=== PATIENT | male | born 1975 | race Two or more races ===

== ENCOUNTER 2025-01-19 15:23 | Inpatient (IN) | payer MEDICAID, OTHER ==
[~2025-01-19] VITALS: Ht 162.6 cm; Wt 55.8 kg
--- NOTE | 2025-01-19 16:10 | ED.PDOC ---
SOB-HPI HPI Comments 49 y/o M, with PMHx of tuberculosis and DM presents to the ED for CC of cough with blood. Patient states, he has been having hemoptysis sudden onset, this morning (01/19/25). Patient reports, he was last diagnosed with Tuberculosis [id number] ago; endorses finishing course of antibiotics following Dx. Patient denies shortness of breath, chest pain, dizziness, body-aches, or chills. No other symptoms or modifying factors are present at this time. Chief Complaint: GI Bleed Time Seen by MD: 16:00 Reviewed notes: Nurses Notes, Medications, Allergies Information Source: Patient Mode of Arrival: Ambulatory Severity: Moderate Timing: Hours Duration: Since onset Context: At Rest PE Risk Factors: None History of: None Prehospital treatment: None Modifying Factors: Nothing Associated Signs and Symptoms: Cough Past Medical History PAST MEDICAL HISTORY: DM Past Medical History (Other): TB Surgical History: Denies all surgeries Family History Family History: Unknown Social History Smoker: Non-Smoker Alcohol: Occasionally Drugs: Denies Drug Use Lives In: Home Constitutional: denies: chills, diaphoresis, fatigue, fever, malaise, sweats, weakness, others EENTM: denies: blurred vision, double vision, ear bleeding, ear discharge, ear drainage, ear pain, ear ringing, eye pain, eye redness, hearing loss, mouth pain, mouth swelling, nasal discharge, nose bleeding, nose congestion, nose pain, photophobia, tearing, throat pain, throat swelling, voice changes, others Respiratory: reports: cough, others (HEMOPTYSIS); denies: hemoptysis, orthopnea, SOB at rest, shortness of breath, SOB with excertion, stridor, wheezing Cardiovascular: denies: chest pain, dizzy spells, diaphoresis, Dyspnea on exertion, edema, irregular heart beat, left arm pain, lightheadedness, palpitations, PND, syncope, others Gastrointestinal: denies: abdomen distended, abdominal pain, blood streaked bowels, constipated, diarrhea, dysphagia, difficulty swallowing, hematemesis, melena, nausea, poor appetite, poor fluid intake, rectal bleeding, rectal pain, vomiting, others Genitourinary: denies: burning, dysuria, flank pain, frequency, hematuria, incontinence, penile discharge, penile sore, pain, testicle pain, testicle swelling, urgency, others Neurological: denies: dizziness, fainting, headache, left sided numbness, left sided weakness, numbness, paresthesia, pre-existing deficit, right sided numbness, right sided weakness, seizure, speech problems, tingling, tremors, weakness, others Musculoskeletal: denies: back pain, gout, joint pain, joint swelling, muscle pain, muscle stiffness, neck pain, others Integumetry: denies: bruises, change in color, change in hair/nails, dryness, laceration, lesions, lumps, rash, wounds, others Allergic/Immunocompromised: denies: Difficulty Healing, Frequent Infections, Hives, Itching, others Hematologic/Lymphatic: denies: anemia, blood clots, easy bleeding, easy bruising, swollen glands, others Endocrine: denies: excessive hunger, excessive sweating, excessive thirst, excessive urination, flushing, intolerance to cold, intolerance to heat, unexplained weight gain, unexplained weight loss, others Psychiatric: denies: anxiety, bipolar disorder, depression, hopeless, panic disorder, schizophrenia, sleepless, suicidal, others All Other Systems: Reviewed and Negative Physical Exam General Appearance: No Apparent Distress HEENT: Normal ENT Inspection, Pharynx Normal, TMs Normal Neck: Full Range of Motion, Non-Tender, Normal, Normal Inspection Respiratory: Chest Non-Tender, Lungs Clear, No Accessory Muscle Use, No Respiratory Distress, Normal Breath Sounds Cardiovascular: No Edema, No JVD, No Murmur, No Gallop, Normal Peripheral Pulses, Regular Rate/Rhythm Breast Exam: Deferred Gastrointestinal: No Organomegaly, Non Tender, No Pulsatile Mass, Normal Bowel Sounds, Soft Genitalia: Deferred Pelvic: Deferred Rectal: Deferred Extremities: No calf tenderness, Normal capillary refill, Normal inspection, Normal range of motion, Non-tender, No pedal edema Musculoskeletal : Apperance: Normal Neurologic: Alert, equipment specialist II-XII nml as Tested, No Motor Deficits, Normal Affect, Normal Mood, No Sensory Deficits Cerebellar Function: Normal Reflexes: Normal Skin: Dry, Normal Color, Warm Lymphatic: No Adenopathy Was a procedure done? Was a procedure done?: No Differential Dx Differential Diagnosis: Bronchitis, Other (tuberculosis) X-Ray, Labs, Meds, VS Vital Signs Date Time Temp Pulse Resp B/P (MAP) Pulse Ox O2 Delivery O2 Flow Rate FiO2 01/19/25 15:25 97.8 94 19 133/77 97 97.8 Lab Test 01/19/25 16:13 Range/Units White Blood Count 5.4 4.4-10.8 10^3/uL Red Blood Count 4.37 L 4.5-5.90 10^6/uL Hemoglobin 13.3 L 13.5-17.5 g/dL Hematocrit 38.8 L 41.0-53.0 % Mean Corpuscular Volume 88.9 80.0-100.0 fL Mean Corpuscular Hemoglobin 30.6 28.0-32.0 pg Mean Corpuscular Hemoglobin Concent 34.4 32.0-36.0 g/dL Red Cell Distribution Width 12.6 11.8-14.3 % Platelet Count 299 140-450 10^3/uL Mean Platelet Volume 7.6 6.9-10.8 fL Neutrophils (%) (Auto) 63.5 37.0-80.0 % Lymphocytes (%) (Auto) 26.4 10.0-50.0 % Monocytes (%) (Auto) 8.8 0.0-12.0 % Eosinophils (%) (Auto) 1.2 0.0-7.0 % Basophils (%) (Auto) 0.1 0.0-2.0 % Neutrophils # (Auto) 3.4 1.6-8.6 10 ^3/uL Lymphocytes # (Auto) 1.4 0.4-5.4 10 ^3/uL Monocytes # (Auto) 0.5 0-1.3 10 ^3/uL Eosinophils # (Auto) 0.1 0-0.8 10 ^3/uL Basophils # (Auto) 0 0-0.2 10 ^3/uL Nucleated Red Blood Cells 0.1 % Sodium Level 133 L 136-145 mmol/L Potassium Level 4.2 3.5-5.1 mmol/L Chloride Level 96 L 98-107 mmol/L Carbon Dioxide Level 27 20-31 mmol/L Anion Gap 10 5-15 Blood Urea Nitrogen 12 9-23 mg/dL Creatinine 1.04 0.700-1.30 mg/dL Glomerular Filtration Rate Calc 87 >90 mL/min BUN/Creatinine Ratio 11.5 10.0-20.0 Serum Glucose 498 *H 74-106 mg/dL Calcium Level 9.6 8.7-10.4 mg/dL CXR: IMPRESSION: Mild interstitial prominence more prominent of the upper lung zones which may represent infectious/ inflammatory process with fibrosis not excluded. The patient's CBC and chemistry panel are within normal limits The patient has remained afebrile here in the emergency department At this time, the patient is being placed in isolation A CAT scan of the chest has been ordered The patient will be admitted to the hospitalist We are contacting our Infectious Disease physician The patient is being admitted. Images Reviewed?: Images reviewed and evaluated by me Time of 1ST Reevaluation: 16:30 Reevaluation 1ST: Unchanged Patient Education/Counseling: Diagnosis, Treatment, Prognosis Family Education/Counseling: No Family Present SEPSIS Sepsis Screen Date sepsis recognized/suspect: Jan 19, 2025 Time Sepsis recognized/suspect: 1524 Recent Procedure: No On Antibiotic Therapy: No Respiratory Rate >20: No Heart Rate >90: Yes Temp<36 C (96.8 F) or >38.3 C: No SBP <90 or MAP <65 mmHG: No New Acute Mental Status Change: No Is the patient on CPAP, BIPAP,: No Physician Orders Chest Two Views Routine (01/19/25 16:02) Heplock Iv (01/19/25 ) Teacher Assistant (01/19/25 ) Pulse Oxymetry (01/19/25 17:11) Blood Pressure (01/19/25 ) Chest Without Contrast (01/19/25 17:11) Vital Signs Date Time Temp Pulse Resp B/P (MAP) Pulse Ox O2 Delivery O2 Flow Rate FiO2 01/19/25 15:25 97.8 94 19 133/77 97 97.8 Laboratory Tests Test 01/19/25 16:13 White Blood Count 5.4 10^3/uL (4.4-10.8) Departure 1 Departure Time of Disposition: 17:05 Impression: Primary Impression: Hemoptysis Disposition: ADMITTED INPATIENT Admit to: Med Surg Condition: Fair Critical Care Note Critical Care Time?: No Stability Stability form required: Yes Unstable for transfer: ED Physician Assesment (Clinical assesment) Heart Score Heart Score: Heart Score Response (Comments) Value History N/A 0 EKG N/A 0 Age N/A 0 Risk Factors N/A 0 Troponin N/A 0 Total 0 I personally scribed for MARV GREY MD ([email or web address]) on 01/19/25 at 16:10. Electronically submitted by Paula Miller ([email or web address]). I personally scribed for MARV GREY MD ([email or web address]) on 01/19/25 at 16:57. Electronically submitted by Paula Miller ([email or web address]). MARV GREY MD Jan 19, 2025 16:10
[2025-01-19 16:36] LABS: Hematocrit 38.8 % (41.0-53.0); Hemoglobin 13.3 g/dL (13.5-17.5); Mean Corpuscular Hemoglobin 30.6 pg (28.0-32.0); Mean Corpuscular Volume 88.9 fL (80.0-100.0); Nucleated Red Blood Cells % 0.1 %
[2025-01-19 16:41] LABS: Calcium 9.6 mg/dL (8.7-10.4); Potassium 4.2 mmol/L (3.5-5.1)
[2025-01-19 16:42] LABS: Anion Gap 10 (5-15); Carbon Dioxide 27 mmol/L (20-31)
[2025-01-19 16:46] LABS: Chloride 96 mmol/L (98-107); Sodium 133 mmol/L (136-145)
[2025-01-19 16:47] LABS: BUN/Creatinine Ratio 11.5 (10.0-20.0); Blood Urea Nitrogen 12 mg/dL (9-23)
--- NOTE | 2025-01-19 16:50 | DVH ---
XY CHEST TWO VIEWS ROUTINE CLINICAL HISTORY: cough COMPARISON: None TECHNIQUE: Frontal and lateral view of the chest was obtained FINDINGS: Lines and Tubes: None Lungs: Mild interstitial prominence most prominent of the upper lung zones. Pleura: No effusion. No pneumothorax. Cardiomediastinal contours: Unremarkable Bones: No acute osseous abnormality. IMPRESSION: Mild interstitial prominence more prominent of the upper lung zones which may represent infectious/ i nflammatory process with fibrosis not excluded.
[2025-01-19 17:08] LABS: Glucose 498 mg/dL (74-106)
--- NOTE | 2025-01-19 18:40 | DVH ---
Procedure: CT CHEST WITHOUT CONTRAST Reason for study/Clinical History: Cough with hemoptysis and possible TB Comparison Study: XY CHEST TWO VIEWS ROUTINE on DOS: 01/19/25 Exam Date: 01/19/2025 05:44 PM TECHNIQUE: Multidetector CT of the chest was performed from the lung apices to the upper abdomen with out the use of intravenous contract. Axial, coronal and sagittal multiplanar reformats were performed . Radiation Dose Information: CT Dose: CTDI volume is 9.6 mGy. Dose-length product is 335.77 mGy*cm The dose indicators for CT are the volume Computed Tomography (CT) Dose Index (CTDIvol) and the Dose Length Product (DLP), and are measured in units of mGy and mGy-cm, respectively. These indicators are not patient dose, but values generated from the CT scanner acquisition factors. The report includes radiation exposure data for exposures received during this examination. FINDINGS: Lower neck: Normal thyroid. Lungs: Bilateral apical pleural disease with a stellate consolidation left apex. This may represent scarring or neoplasm. It measures 2.3 x 2.6 cm. Biapical bullous disease is noted. Heart/Vascular Structures: Normal heart size. No pericardial effusion. Lymph Nodes: No adenopathy Pleura: No pleural effusion or significant pneumothorax. Musculoskeletal: No acute osseous abnormality. Soft tissues: Normal. Upper abdomen: Limited portions of the upper abdomen are unremarkable. IMPRESSION: 1. Biapical pleural scarring bullous disease. 2. In the left apex is a 2.6 x 2.3 cm spiculated parenchymal consolidation with parenchymal stranding to the pleural surfaces. Pulmonary scarring vs neoplasm vs infection are all in the differential. T here are no prior studies for comparison. Consider PET scan for further differentiation. Not sure PET is indicated case. Radiation optimization: All CT scans at this facility use at least one of these dose optimization maribel hniques: automated exposure control mA and/or kV adjustment per patient size (includes targeted exam s where dose is matched to clinical indication) or iterative reconstruction.
[2025-01-19] MEDS ORDERED: MORPHINE SULFATE INJ 2 MG/ml SYRG IV PRN (20:00)
[2025-01-19] MEDS ORDERED: NITROGLYCERIN 0.4 MG SL TAB SL PRN (20:00)
[2025-01-19 20:10] VITALS: PULSE 88; RESP 24; O2SAT 98
[2025-01-19] MEDS ORDERED: DEXTROSE (50%) 50ML SYRG IV PRN (20:30)
[2025-01-19] MEDS ORDERED: ONDANSETRON HCL 4 MG/2 ML VIAL IV PRN (20:30)
[2025-01-19 20:58] LABS: Hematocrit 40.6 % (41.0-53.0); Hemoglobin 14.1 g/dL (13.5-17.5)
[2025-01-19 21:02] LABS: Urine Protein, UAD Negative (Negative)
--- NOTE | 2025-01-19 22:50 | DVHHP2 ---
History of Present Illness Reason for Visit: Hemoptysis History of Present Illness 49-year-old male presents for evaluation of bloody cough. Patient reports a one day history of having a cough with bloody sputum. Denies fever or chills. No night sweats. Patient does report being treated for tuberculosis nine years ago for which he completed six months of treatment. Past Medical History Diabetes mellitus, tuberculosis Past Surgical History Denies Family History Noncontributory Smoke: No ALCOHOL: occassional Drugs: None Lives: with Family Review of Systems Review of Systems Review of systems are currently negative otherwise addressed in HPI. Allergies: Coded Allergies: NO KNOWN ALLERGIES (Unverified , 01/19/25) Medications Current Medications Medications Dose Ordered Sig/Jackelin Route Start Time Stop Time Status Last Admin Dose Admin Nitroglycerin 0.4 mg Q5MINP PRN SL 01/19/25 20:00 Morphine Sulfate 2 mg Q30M PRN IV 01/19/25 20:00 Diagnostic Test (Pha) 1 strip Q6HR 01/20/25 00:00 Insulin Human Regular Q6HR SC 01/20/25 00:00 Dextrose 50 ml UD PRN IV 01/19/25 20:30 Ondansetron HCl 4 mg Q4HP PRN IV 01/19/25 20:30 Exam Vital Signs Vital Signs Date Time Temp Pulse Resp B/P (MAP) Pulse Ox O2 Delivery O2 Flow Rate FiO2 01/19/25 22:00 95 22 134/84 (101) 96 01/19/25 20:10 98.4 98.4 01/19/25 20:10 Nasal Cannula* 2 28 Exam Gen: 49-year-old male in no apparent distress Skin: Warm, dry, normal color and texture, no rash. HEENT: Normocephalic atraumatic, mucous membranes moist and pink. Neck: Cervical and supraclavicular nodes normal without enlargement, trachea is midline, thyroid gland is normal without masses. Pulmonary: Clear to auscultation and percussion bilaterally. Cardiac: Regular rate and rhythm. No murmur Abdomen: Soft, nontender, nondistended, bowel sounds present all 4 quadrants, no guarding, no rigidity, no organomegaly. Extremities: No cyanosis, clubbing, no edema Neuro: Cranial nerves II through XII grossly intact, normal affect and speech, no focal motor deficits. Labs/Xrays ORDERING PHYSICIAN: MARV GREY MD PROCEDURE(s): CX2CT - CHEST WITHOUT CONTRAST REASON: Cough with hemoptysis and possible TB ORDER NUMBER(s): [id number], ACCESSION NUMBER(s): [id number] Procedure: CT CHEST WITHOUT CONTRAST Reason for study/Clinical History: Cough with hemoptysis and possible TB Comparison Study: XY CHEST TWO VIEWS ROUTINE on DOS: 01/19/25 Exam Date: 01/19/2025 05:44 PM TECHNIQUE: Multidetector CT of the chest was performed from the lung apices to the upper abdomen without the use of intravenous contract. Axial, coronal and sagittal multiplanar reformats were performed. Radiation Dose Information: CT Dose: CTDI volume is 9.6 mGy. Dose-length product is 335.77 mGy*cm The dose indicators for CT are the volume Computed Tomography (CT) Dose Index (CTDIvol) and the Dose Length Product (DLP), and are measured in units of mGy and mGy-cm, respectively. These indicators are not patient dose, but values generated from the CT scanner acquisition factors. The report includes radiation exposure data for exposures received during this examination. FINDINGS: Lower neck: Normal thyroid. Lungs: Bilateral apical pleural disease with a stellate consolidation left apex. This may represent scarring or neoplasm. It measures 2.3 x 2.6 cm. Biapical bullous disease is noted. Heart/Vascular Structures: Normal heart size. No pericardial effusion. Lymph Nodes: No adenopathy Pleura: No pleural effusion or significant pneumothorax. Musculoskeletal: No acute osseous abnormality. Soft tissues: Normal. Upper abdomen: Limited portions of the upper abdomen are unremarkable. IMPRESSION: 1. Biapical pleural scarring bullous disease. 2. In the left apex is a 2.6 x 2.3 cm spiculated parenchymal consolidation with parenchymal stranding to the pleural surfaces. Pulmonary scarring vs neoplasm vs infection are all in the differential. There are no prior studies for comparison. Consider PET scan for further differentiation. Not sure PET is indicated case. Radiation optimization: All CT scans at this facility use at least one of these dose optimization techniques: automated exposure control mA and/or kV adjustment per patient size (includes targeted exams where dose is matched to clinical indication) or iterative reconstruction. Labs Test 01/19/25 20:54 01/19/25 20:40 01/19/25 16:13 Range/Units Urine Color Light-yellow Yellow Urine Clarity Clear Clear Urine pH 5.0 5.0-9.0 Urine Specific [place] 1.041 H 1.001-1.035 Urine Protein Negative Negative Urine Ketones 1+ H Negative Urine Blood Negative Negative /uL Urine Nitrite Negative Negative Urine Bilirubin Negative Negative Urine Urobilinogen Normal Negative mg/dL Urine Leukocyte Esterase Negative Negative /uL Urine RBC <1 0 - 3 /hpf Urine Microscopic WBC < 1 0-3 /HPF Urine Squamous Epithelial Cells None seen <5 /hpf Urine Bacteria None seen None Seen /hpf Urine Glucose 4+ H Normal mg/dL Hemoglobin 14.1 13.5-17.5 g/dL Hematocrit 40.6 L 41.0-53.0 % White Blood Count 5.4 4.4-10.8 10^3/uL Red Blood Count 4.37 L 4.5-5.90 10^6/uL Mean Corpuscular Volume 88.9 80.0-100.0 fL Mean Corpuscular Hemoglobin 30.6 28.0-32.0 pg Mean Corpuscular Hemoglobin Concent 34.4 32.0-36.0 g/dL Red Cell Distribution Width 12.6 11.8-14.3 % Platelet Count 299 140-450 10^3/uL Mean Platelet Volume 7.6 6.9-10.8 fL Neutrophils (%) (Auto) 63.5 37.0-80.0 % Lymphocytes (%) (Auto) 26.4 10.0-50.0 % Monocytes (%) (Auto) 8.8 0.0-12.0 % Eosinophils (%) (Auto) 1.2 0.0-7.0 % Basophils (%) (Auto) 0.1 0.0-2.0 % Neutrophils # (Auto) 3.4 1.6-8.6 10 ^3/uL Lymphocytes # (Auto) 1.4 0.4-5.4 10 ^3/uL Monocytes # (Auto) 0.5 0-1.3 10 ^3/uL Eosinophils # (Auto) 0.1 0-0.8 10 ^3/uL Basophils # (Auto) 0 0-0.2 10 ^3/uL Nucleated Red Blood Cells 0.1 % Sodium Level 133 L 136-145 mmol/L Potassium Level 4.2 3.5-5.1 mmol/L Chloride Level 96 L 98-107 mmol/L Carbon Dioxide Level 27 20-31 mmol/L Anion Gap 10 5-15 Blood Urea Nitrogen 12 9-23 mg/dL Creatinine 1.04 0.700-1.30 mg/dL Glomerular Filtration Rate Calc 87 >90 mL/min BUN/Creatinine Ratio 11.5 10.0-20.0 Serum Glucose 498 *H 74-106 mg/dL Calcium Level 9.6 8.7-10.4 mg/dL SEPSIS Sepsis Screen Date sepsis recognized/suspect: Jan 19, 2025 Time Sepsis recognized/suspect: 2012 Recent Procedure: No On Antibiotic Therapy: No Respiratory Rate >20: Yes Heart Rate >90: No Temp<36 C (96.8 F) or >38.3 C: No SBP <90 or MAP <65 mmHG: No New Acute Mental Status Change: No Is the patient on CPAP, BIPAP,: No Physician Orders Chest Two Views Routine (01/19/25 16:02) Heplock Iv (01/19/25 ) Double End Sewer (01/19/25 ) Pulse Oxymetry (01/19/25 17:11) Blood Pressure (01/19/25 ) Chest Without Contrast (01/19/25 17:11) Nitroglycerin Sublingual (Ntrostat Subli (01/19/25 20:00) Stat Ekg For Chest Pain (01/19/25 19:55) Notify Md Of Changes From Base (01/19/25 19:55) Supervisor [employer] For 24 Hours (01/19/25 19:55) Emergency Dysrhythmia Protocol (01/19/25 19:55) Rhythm Strips Once Every Shift (01/19/25 19:55) Oxygen By Nasal Cannula (01/19/25 19:55) Morphine Sulfate Injection (01/19/25 20:00) Admit (01/19/25 20:22) *Consult / (01/19/25 20:22) Basic Metabolic Panel (01/20/25 04:00) Glucose Blood (Accu-Chek Comfort Curve T (01/20/25 00:00) Insulin R (Human) (Insulin R) (01/20/25 00:00) Dextrose 50% Syringe (01/19/25 20:30) Ondansetron Hcl (Zofran) (01/19/25 20:30) Complete Blood Count (01/20/25 04:00) Cardiac Diet-2gna,Lofat,Lochol (01/20/25 Breakfast) Condition: Stable (01/19/25 20:22) Bedrest With Bathroom Privileg (01/19/25 20:22) Vital Signs Date Time Temp Pulse Resp B/P (MAP) Pulse Ox O2 Delivery O2 Flow Rate FiO2 01/19/25 22:00 95 22 134/84 (101) 96 01/19/25 20:10 98.4 88 24 142/91 (108) 98 98.4 01/19/25 20:10 88 24 98 Nasal Cannula* 2 28 01/19/25 20:00 79 01/19/25 18:14 Room Air* 0 21 01/19/25 15:25 97.8 94 19 133/77 97 97.8 Laboratory Tests Test 01/19/25 16:13 White Blood Count 5.4 10^3/uL (4.4-10.8) Assessment/Plan Assessment/Plan Assessment Blood hemoptysis Diabetes mellitus History of TB Plan Admit the patient to [facility] to the hospitalist Pulmonary consultation Continue treatment per orders. Plan discussed with: Patient My Orders Orders - KATHERINE CATES Procedure Category Date Status Time Nitroglycerin PHA 01/19/25 In Process Sublingual (Ntrostat 20:00 Stat Ekg For Chest [facility] 01/19/25 In Process Pain 19:55 Notify Of Changes [facility] 01/19/25 In Process From Base 19:55 Supervisor [employer] For [facility] 01/19/25 In Process 24 Hours 19:55 Emergency Dysrhythmia GAYATHRI 01/19/25 In Process Protocol 19:55 Rhythm Strips Once [facility] 01/19/25 In Process Every Shift 19:55 Oxygen By Nasal RT 01/19/25 Transmitted Cannula 19:55 Morphine Sulfate PHA 01/19/25 In Process Injection 20:00 Admit ADMIT 01/19/25 Transmitted 20:22 *Consult CONS 01/19/25 Transmitted / 20:22 Basic Metabolic Panel LAB 01/20/25 Verified 04:00 Glucose Blood PHA 01/20/25 In Process (Accu-Chek Comfort 00:00 Insulin R (Human) PHA 01/20/25 In Process (Insulin R) 00:00 Dextrose 50% Syringe PHA 01/19/25 In Process 20:30 Ondansetron Hcl PHA 01/19/25 In Process (Zofran) 20:30 Complete Blood Count LAB 01/20/25 Verified 04:00 Cardiac DIET 01/20/25 Transmitted Diet-2gna,Lofat,Lochol Breakfast Condition: Stable GAYATHRI 01/19/25 In Process 20:22 Bedrest With Bathroom GAYATHRI 01/19/25 In Process Privileg 20:22 Date of Service: Jan 19, 2025 Billing Provider: KATHERINE CATES Common Visit Codes: [id number] INP/OBS CARE (MOD) KATHERINE CATES Jan 19, 2025 22:50
[2025-01-19] MEDS: InsuLIN REG 1unit/0.01ml Soln (100units/ml) SC SCH (23:34)
[2025-01-19] MEDS: ACCU-CHEK COMFORT CURVE STRIP VI SCH (23:34)
[2025-01-20 06:35] LABS: Hematocrit 38.6 % (41.0-53.0); Hemoglobin 13.6 g/dL (13.5-17.5); Mean Corpuscular Hemoglobin 31.0 pg (28.0-32.0); Mean Corpuscular Volume 88.0 fL (80.0-100.0); Nucleated Red Blood Cells % 0.0 %
[2025-01-20 06:59] LABS: Chloride 104 mmol/L (98-107); Potassium 3.7 mmol/L (3.5-5.1); Sodium 141 mmol/L (136-145)
[2025-01-20 07:00] LABS: Anion Gap 9 (5-15); Calcium 9.4 mg/dL (8.7-10.4); Carbon Dioxide 28 mmol/L (20-31)
[2025-01-20 07:05] LABS: BUN/Creatinine Ratio 22.0 (10.0-20.0); Blood Urea Nitrogen 13 mg/dL (9-23)
[2025-01-20 07:06] LABS: Glucose 123 mg/dL (74-106)
[2025-01-20 07:20] VITALS: PULSE 76; RESP 18; O2SAT 99
--- NOTE | 2025-01-20 14:13 | DVHPN2 ---
Subjective Patient continues to report having shortness of breath. Reviewed: Care Plan, H&P, Labs, Medications Changes from previous H/P or p: No Changes General: Per HPI Objective Vitals Vital Signs Date Time Temp Pulse Resp B/P (MAP) Pulse Ox O2 Delivery O2 Flow Rate FiO2 01/20/25 12:00 89 01/20/25 12:00 17 113/77 (89) 96 01/20/25 07:20 Room Air* 0 21 01/20/25 07:20 98.0 98.0 Intake/Output Intake and Output 01/20/25 07:00 Output Total 900 ml Balance -900 ml Output Urine Total 900 ml General Appearance: Alert, Oriented X3, Cooperative, No acute distress HEENT: Atraumatic, PERRLA Lungs: Clear to auscultation, Normal air movement Cardiovascular: Normal S1, Normal S2 Abdomen: Normal bowel sounds, Soft, No hepatospenomegaly Skin: Dry, Intact Psych/Mental Status: Mental status NL, Mood NL Medications Current Medications Medications Dose Ordered Sig/Jackelin Route Start Time Stop Time Status Last Admin Dose Admin Nitroglycerin 0.4 mg Q5MINP PRN SL 01/19/25 20:00 Morphine Sulfate 2 mg Q30M PRN IV 01/19/25 20:00 Diagnostic Test (Pha) 1 strip Q6HR 01/20/25 00:00 01/20/25 12:00 1 STRIP Insulin Human Regular Q6HR SC 01/20/25 00:00 01/20/25 12:34 10 UNITS Dextrose 50 ml UD PRN IV 01/19/25 20:30 Ondansetron HCl 4 mg Q4HP PRN IV 01/19/25 20:30 Laboratory Results Laboratory Tests 01/20/25 06:05 Chemistry Test 01/19/25 16:13 01/20/25 06:05 Calcium Level 9.6 mg/dL (8.7-10.4) 9.4 mg/dL (8.7-10.4) Urinalysis Test 01/19/25 20:54 Urine Color Light-yellow (Yellow) Urine Clarity Clear (Clear) Urine pH 5.0 (5.0-9.0) Urine Specific [place] 1.041 (1.001-1.035) Urine Protein Negative (Negative) Urine Ketones 1+ (Negative) H Urine Blood Negative /uL (Negative) Urine Nitrite Negative (Negative) Urine Bilirubin Negative (Negative) Urine Urobilinogen Normal mg/dL (Negative) Urine Leukocyte Esterase Negative /uL (Negative) Urine RBC <1 /hpf (0 - 3) Urine Microscopic WBC < 1 /HPF (0-3) Urine Squamous Epithelial Cells None seen /hpf (<5) Urine Bacteria None seen /hpf (None Seen) Urine Glucose 4+ mg/dL (Normal) H Labs and/or images reviewed: Labs reviewed by me, Image(s) reviewed by me Assessment/Plan Assessment/Plan Impression: -hemoptysis, rule out tuberculosis -diabetes mellitus, uncontrolled -medication noncompliance Plan: -QuantiFERON gold, AFB smears -pulmonology consultation -infectious disease consultation -regular insulin sliding scale -check hemoglobin A1c -further course of care per pulmonology consultation -continue current antibiotic therapy for atypical pneumonia Total time spent with patient discussing and formulating plan of care: 35 minutes. This medical document was created using an electronic medical record system with [employer] dictation system. Although this document has been carefully reviewed, there may still be some phonetic and typographical errors. These areas are purely typographical due to imperfections of the software programs, and do not reflect any compromise in the patient's medical care. Plan discussed with: Patient, Other (RN) My Orders Orders - DENICE TOVAR NP Procedure Category Date Status Time Hemoglobin A1c LAB 01/20/25 Logged 13:26 Erythrocyte LAB 01/20/25 In Process Sedimentation Rate 13:26 C-Reactive Protein LAB 01/20/25 Logged 13:26 * Infectious Oral- Dr. WICK 01/20/25 Transmitted Ishmael Medrano 13:26 Date of Service: Jan 20, 2025 Billing Provider: DENICE TOVAR NP Common Visit Codes: [id number] INP/OBS CARE(HIGH) DENICE TOVAR NP Jan 20, 2025 14:13
[2025-01-20] MEDS: PIPERACILLIN-TAZOB 3.375GM 100 ML IV ONE (14:58)
[2025-01-20 16:03] VITALS: BP 133/78; PULSE 77; RESP 15; TEMP 97.2; O2SAT 100
[2025-01-20 16:08] VITALS: PULSE 77; RESP 17; O2SAT 100
[2025-01-20] MEDS: AZITHROMYCIN 500MG/ 250ML 250 ML IV SCH (16:38)
[2025-01-20 16:52] VITALS: BP 131/85; PULSE 91; RESP 18; TEMP 98.2; O2SAT 97
[2025-01-20 21:00] VITALS: BP 115/74; PULSE 91; RESP 18; TEMP 98.4; O2SAT 96
[2025-01-20] MEDS: PIPERACILLIN-TAZOB 3.375GM 100 ML IV SCH (21:41)
--- NOTE | 2025-01-20 23:32 | DVHINCON2 ---
Date of service: Jan 20, 2025 Referring Physician MILY Tovar Reason for Consultation Hemoptysis, pulmonary nodule, biapical bullae. History of Present Illness A 49-year-old man with past medical history of tuberculosis and diabetes mellitus, who presented to ED on 01/19/25 for evaluation of bloody cough. Patient reports a one day history of having a cough with bloody sputum. Denies fever or chills. No night sweats. Patient does report being treated for tuberculosis 9 years ago, for which he completed 6 months of treatment. Patient was admitted for further care. Pulmonary consultation is requested for evaluation and management due to hemoptysis and pulmonary nodule and biapical bullae noted on imaging. Review of Systems: 14-point review of systems negative unless otherwise noted above. Past Medical History Diabetes mellitus, tuberculosis Past Surgical History Denies Medications: Reviewed. Allergies: No known drug allergies. Family History No family history of premature CAD. No family history of lung disorders. Social History: Nonsmoker. Occasional alcohol use. No illicit drug use. Allergies: Coded Allergies: NO KNOWN ALLERGIES (Unverified , 01/19/25) Home Meds Active Scripts Insulin Aspart (Insulin Aspart Flexpen) 100 Unit/Ml Inj, 6 UNIT SC ACHS for 30 Days, #6 INJ Prov:DENICE TOVAR NP 01/26/25 Insulin Glargine (Lantus) 100 Unit/Ml Inj, 25 UNIT SC DAILY for 30 Days, #60 INJ Prov:DENICE TOVAR NP 01/26/25 Levofloxacin Hemihydrate (LEVAQUIN 500 MG) 500 Mg Tab, 1 TAB PO DAILY, #7 TAB Prov:DENICE TOVAR NP 01/26/25 Lancets (Freestyle Lancets) Lancets Mis, UNIT XX AC, #100 Prov:DENICE TOVAR NP 01/26/25 Blood Glucose Monitoring Suppl (D-Care Glucometer Kit/Glu W/Device) 1 Kit Kit, KIT XX ACHS, #1 Prov:DENICE TOVAR NP 01/26/25 Current Medications Current Medications Medications (Trade) Dose Ordered Sig/Jackelin Route PRN Reason Start Time Stop Time Status Last Admin Diagnostic Test (Pha) (Accu-Chek Comfort Curve T) 1 strip Q6HR 01/20/25 00:00 01/20/25 17:43 Insulin Human Regular (InsuLIN R) Q6HR SC 01/20/25 00:00 01/20/25 17:43 Azithromycin 250 ml @ 125 mls/hr DAILY IV 01/20/25 16:00 01/20/25 16:38 Piperacillin Sod/ Tazobactam Sod 100 ml @ 25 mls/hr Q8HR IV 01/20/25 22:00 01/20/25 21:41 Vital Signs Vital Signs Date Time Temp Pulse Resp B/P (MAP) Pulse Ox O2 Delivery O2 Flow Rate FiO2 01/20/25 21:00 98.4 91 18 115/74 (88) 96 98.4 01/20/25 16:08 Room Air* 0 21 Physical Exam Gen.: Patient lying in bed in no apparent distress. Breathing on room air. Head: Normocephalic, atraumatic. Eyes: EOMI/PERRLA. Ears: Normal hearing. Normal anatomy. Neck/trachea: Trachea midline, supple. Nose: Normal external anatomy. Mouth: Moist mucous membranes. Chest: Decreased air entry bilaterally. No wheezing or rhonchi. Cardiovascular: Positive S1, positive S2. Regular rate and rhythm. Abdomen: Positive bowel sounds in all 4 quadrants. Soft, non-tender, non- distended. : Deferred. Rectal: Deferred. Skin: Warm, dry. Intact. Extremities: 2+ radial pulses bilaterally. No lower extremity edema. Neuro: Awake, alert, oriented x3. No gross motor or sensory deficits. Cranial nerves II through XII intact. Gait not assessed. Labs/Diagnostic Data Labs Test 01/20/25 16:43 01/20/25 06:05 01/19/25 23:02 01/19/25 20:54 Range/Units POC Glucose 364 H 70-106 mg/dl White Blood Count 5.2 4.4-10.8 10^3/uL Red Blood Count 4.38 L 4.5-5.90 10^6/uL Hemoglobin 13.6 13.5-17.5 g/dL Hematocrit 38.6 L 41.0-53.0 % Mean Corpuscular Volume 88.0 80.0-100.0 fL Mean Corpuscular Hemoglobin 31.0 28.0-32.0 pg Mean Corpuscular Hemoglobin Concent 35.2 32.0-36.0 g/dL Red Cell Distribution Width 12.3 11.8-14.3 % Platelet Count 288 140-450 10^3/uL Mean Platelet Volume 7.1 6.9-10.8 fL Neutrophils (%) (Auto) 53.6 37.0-80.0 % Lymphocytes (%) (Auto) 34.3 10.0-50.0 % Monocytes (%) (Auto) 10.2 0.0-12.0 % Eosinophils (%) (Auto) 1.7 0.0-7.0 % Basophils (%) (Auto) 0.2 0.0-2.0 % Neutrophils # (Auto) 2.8 1.6-8.6 10 ^3/uL Lymphocytes # (Auto) 1.8 0.4-5.4 10 ^3/uL Monocytes # (Auto) 0.5 0-1.3 10 ^3/uL Eosinophils # (Auto) 0.1 0-0.8 10 ^3/uL Basophils # (Auto) 0 0-0.2 10 ^3/uL Nucleated Red Blood Cells 0.0 % Erythrocyte Sedimentation Rate 28 H 0-20 mm/hr Sodium Level 141 # 136-145 mmol/L Potassium Level 3.7 3.5-5.1 mmol/L Chloride Level 104 98-107 mmol/L Carbon Dioxide Level 28 20-31 mmol/L Anion Gap 9 5-15 Blood Urea Nitrogen 13 9-23 mg/dL Creatinine 0.59 L 0.700-1.30 mg/dL Glomerular Filtration Rate Calc 117 >90 mL/min BUN/Creatinine Ratio 22.0 H 10.0-20.0 Serum Glucose 123 #H 74-106 mg/dL Hemoglobin A1c > 14.0 H <5.7 % A1C Calcium Level 9.4 8.7-10.4 mg/dL C-Reactive Protein High Sensitivity 0.17 <1.0 mg/dL HIV (1&2) Antibody Negative Negative Urine Color Light-yellow Yellow Urine Clarity Clear Clear Urine pH 5.0 5.0-9.0 Urine Specific [place] 1.041 H 1.001-1.035 Urine Protein Negative Negative Urine Ketones 1+ H Negative Urine Blood Negative Negative /uL Urine Nitrite Negative Negative Urine Bilirubin Negative Negative Urine Urobilinogen Normal Negative mg/dL Urine Leukocyte Esterase Negative Negative /uL Urine RBC <1 0 - 3 /hpf Urine Microscopic WBC < 1 0-3 /HPF Urine Squamous Epithelial Cells None seen <5 /hpf Urine Bacteria None seen None Seen /hpf Urine Glucose 4+ H Normal mg/dL Assessment Impression: Hemoptysis Pulmonary nodule, 2.3 x 2.6 cm Biapical bullae History of TB. Plan: Supplemental oxygen PRN Titrate to keep O2 sats above 92%. CT reviewed, demonstrates Biapical pleural scarring bullous disease. In the left apex is a 2.6 x 2.3 cm spiculated parenchymal consolidation with parenchymal stranding to the pleural surfaces. Pulmonary scarring vs neoplasm vs infection are all in the differential. Recommend antibiotics Rule out TB Follow up AFB smears Follow up QuantiFERON test Quantify hemoptysis Monitor renal function. Monitor electrolytes. Supplement as necessary. DVT prophylaxis. Prognosis: Poor given patient's multiple co-morbidities. Rest of plan per hospitalist and other consultants. Thank you, MILY Tovar, for allowing me to participate in this patient's care. Further recommendations will depend on the patient's clinical course. Please do not hesitate to contact me if you have any questions or concerns. This medical document was created using an electronic medical record system with [employer] dictation system. Although these documentations are being carefully reviewed, there may still be some phonetic and typographical changes. The errors are purely typographical, due to imperfection on the software program, and do not reflect any compromise in the patient's medical care. Plan discussed with: Patient, Other (RN/MILY Tovar/) TAE SABILLON MD Jan 20, 2025 23:32
[2025-01-21] VITALS (9 sets, daily range): BP systolic 104–149; BP diastolic 70–98; PULSE 84–88; RESP 16–18; TEMP 97.9–98.5; O2SAT 95–97
[2025-01-21] MEDS ORDERED: DEXTROSE (50%) 50ML SYRG IV PRN (11:30)
[2025-01-21] MEDS: InsuLIN REG 1unit/0.01ml Soln (100units/ml) SC SCH ×2 (12:11→22:04)
[2025-01-21] MEDS: ACCU-CHEK COMFORT CURVE STRIP VI SCH (12:12)
--- NOTE | 2025-01-21 13:44 | DVHPN2 ---
Subjective Patient continues to report having shortness of breath. Reviewed: Care Plan, H&P, Labs, Medications Changes from previous H/P or p: No Changes General: Per HPI Objective Vitals Vital Signs Date Time Temp Pulse Resp B/P (MAP) Pulse Ox O2 Delivery O2 Flow Rate FiO2 01/21/25 08:47 98.0 87 16 149/98 (115) 96 98.0 01/21/25 07:30 Room Air* 0 21 Intake/Output Intake and Output 01/21/25 07:00 Intake Total 500 ml Balance 500 ml Intake Oral 250 ml IV Total 250 ml # Voids 2 # Bowel Movements 1 General Appearance: Alert, Oriented X3, Cooperative, No acute distress HEENT: Atraumatic, PERRLA Lungs: Clear to auscultation, Normal air movement Cardiovascular: Normal S1, Normal S2 Abdomen: Normal bowel sounds, Soft, No hepatospenomegaly Skin: Dry, Intact Psych/Mental Status: Mental status NL, Mood NL Medications Current Medications Medications Dose Ordered Sig/Jackelin Route Start Time Stop Time Status Last Admin Dose Admin Nitroglycerin 0.4 mg Q5MINP PRN SL 01/19/25 20:00 Morphine Sulfate 2 mg Q30M PRN IV 01/19/25 20:00 Ondansetron HCl 4 mg Q4HP PRN IV 01/19/25 20:30 Azithromycin 250 ml @ 125 mls/hr DAILY IV 01/20/25 16:00 01/21/25 10:09 125 MLS/HR Piperacillin Sod/ Tazobactam Sod 100 ml @ 25 mls/hr Q8HR IV 01/20/25 22:00 01/21/25 05:12 25 MLS/HR Diagnostic Test (Pha) 1 strip ACHS 01/21/25 11:30 01/21/25 12:12 1 STRIP Insulin Human Regular HS SC 01/21/25 22:00 Insulin Human Regular AC SC 01/21/25 11:30 01/21/25 12:11 15 UNITS Dextrose 50 ml UD PRN IV 01/21/25 11:30 Laboratory Results Laboratory Tests 01/20/25 06:05 Urinalysis Test 01/19/25 20:54 Urine Color Light-yellow (Yellow) Urine Clarity Clear (Clear) Urine pH 5.0 (5.0-9.0) Urine Specific [place] 1.041 (1.001-1.035) Urine Protein Negative (Negative) Urine Ketones 1+ (Negative) H Urine Blood Negative /uL (Negative) Urine Nitrite Negative (Negative) Urine Bilirubin Negative (Negative) Urine Urobilinogen Normal mg/dL (Negative) Urine Leukocyte Esterase Negative /uL (Negative) Urine RBC <1 /hpf (0 - 3) Urine Microscopic WBC < 1 /HPF (0-3) Urine Squamous Epithelial Cells None seen /hpf (<5) Urine Bacteria None seen /hpf (None Seen) Urine Glucose 4+ mg/dL (Normal) H Labs and/or images reviewed: Labs reviewed by me, Image(s) reviewed by me Assessment/Plan Assessment/Plan Impression: -hemoptysis, rule out tuberculosis -diabetes mellitus, uncontrolled -medication noncompliance Plan: Events: Continues to have hemoptysis -QuantiFERON gold, AFB smears : Pending -pulmonology consultation : Recommendations reviewed -infectious disease consultation : Recommendations appreciated -increase sliding scale to moderate coverage -p.r.n. bronchodilators -continue current antibiotic therapy for atypical pneumonia Total time spent with patient discussing and formulating plan of care: 35 minutes. This medical document was created using an electronic medical record system with [employer] dictation system. Although this document has been carefully reviewed, there may still be some phonetic and typographical errors. These areas are purely typographical due to imperfections of the software programs, and do not reflect any compromise in the patient's medical care. Plan discussed with: Patient, Other (RN) My Orders Orders - DENICE TOVAR NP Procedure Category Date Status Time Cardiac DIET 01/20/25 Transmitted Diet-2gna,Lofat,Lochol Dinner Piperacillin-Tazob PHA 01/20/25 In Process 3.375gm (Zosyn 3.375g 22:00 Azithromycin 500mg/ PHA 01/20/25 In Process 250ml (Zithromax 50 16:00 Glucose Blood PHA 01/21/25 In Process (Accu-Chek Comfort 11:30 Insulin R (Human) PHA 01/21/25 In Process (Insulin R) 22:00 Insulin R (Human) PHA 01/21/25 In Process (Insulin R) 11:30 Dextrose 50% Syringe PHA 01/21/25 In Process 11:30 Date of Service: Jan 21, 2025 Billing Provider: DENICE TOVAR NP Common Visit Codes: [id number] INP/OBS CARE(HIGH) DENICE TOVAR NP Jan 21, 2025 13:44
[2025-01-21] MEDS ORDERED: ALBUTEROL SULF 2.5 MG/0.5ML(0.5%) NEB SOLN NEB PRN (13:45)
--- NOTE | 2025-01-21 20:38 | DVHPN2 ---
Progress Note - Dictate Date Seen: Jan 21, 2025 Medical Necessity Reason Pt with a Central, PICC or Fol: No Subjective Patient seen and examined at bedside. Breathing comfortably on room air. Overnight events reviewed. vital signs Vital Sign Date Time Temp Pulse Resp B/P (MAP) Pulse Ox O2 Delivery O2 Flow Rate FiO2 01/21/25 20:20 97 Room Air* 0 21 01/21/25 16:53 98.0 88 16 117/73 (88) 98.0 Total Intake and Output 01/20/25 01/20/25 01/21/25 15:00 23:00 07:00 Intake Total 250 ml 250 ml Balance 250 ml 250 ml medications Current Medications Medications Dose Ordered Sig/Jackelin Route Start Time Stop Time Status Last Admin Dose Admin Nitroglycerin 0.4 mg Q5MINP PRN SL 01/19/25 20:00 Morphine Sulfate 2 mg Q30M PRN IV 01/19/25 20:00 Ondansetron HCl 4 mg Q4HP PRN IV 01/19/25 20:30 Azithromycin 250 ml @ 125 mls/hr DAILY IV 01/20/25 16:00 01/21/25 10:09 125 MLS/HR Piperacillin Sod/ Tazobactam Sod 100 ml @ 25 mls/hr Q8HR IV 01/20/25 22:00 01/21/25 14:11 25 MLS/HR Diagnostic Test (Pha) 1 strip ACHS 01/21/25 11:30 01/21/25 17:57 1 STRIP Insulin Human Regular HS SC 01/21/25 22:00 Insulin Human Regular AC SC 01/21/25 11:30 01/21/25 17:57 3 UNITS Dextrose 50 ml UD PRN IV 01/21/25 11:30 Albuterol 2.5 mg Q3HPRN PRN NEB 01/21/25 13:45 objective Gen.: Patient lying in bed in no apparent distress. Breathing on room air. Head: Normocephalic, atraumatic. Eyes: EOMI/PERRLA. Ears: Normal hearing. Normal anatomy. Neck/trachea: Trachea midline, supple. Nose: Normal external anatomy. Mouth: Moist mucous membranes. Chest: Decreased air entry bilaterally. No wheezing or rhonchi. Cardiovascular: Positive S1, positive S2. Regular rate and rhythm. Abdomen: Positive bowel sounds in all 4 quadrants. Soft, non-tender, non- distended. : Deferred. Rectal: Deferred. Skin: Warm, dry. Intact. Extremities: 2+ radial pulses bilaterally. No lower extremity edema. Neuro: Awake, alert, oriented x3. No gross motor or sensory deficits. Cranial nerves II through XII intact. Gait not assessed. laboratory and microbiology Laboratory Tests 01/20/25 06:05 Test 01/20/25 06:05 Range/Units Serum Glucose 123 #H 74-106 mg/dL Assessment/Plan Impression: Hemoptysis Pulmonary nodule, 2.3 x 2.6 cm Biapical bullae History of TB. Events: Breathing on room air Supplemental oxygen PRN Continue antibiotics Follow up QuantiFERON Gold. Antitussives for cough Send AFB smear and cultures. Quantify hemoptysis, continue to monitor. CT chest on 01/19/25 demonstrates Biapical pleural scarring bullous disease. In the left apex is a 2.6 x 2.3 cm spiculated parenchymal consolidation with parenchymal stranding to the pleural surfaces. Pulmonary scarring vs neoplasm vs infection are all in the differential. Labs and imaging reviewed. Rest of plan as noted below. Plan: Supplemental oxygen PRN Titrate to keep O2 sats above 92%. Recommend antibiotics Rule out TB Follow up AFB smears Follow up QuantiFERON test Quantify hemoptysis Monitor renal function. Monitor electrolytes. Supplement as necessary. DVT prophylaxis. Prognosis: Poor given patient's multiple co-morbidities. Rest of plan per hospitalist and other consultants. Thank you, MILY Woo, for allowing me to participate in this patient's care. Further recommendations will depend on the patient's clinical course. Please do not hesitate to contact me if you have any questions or concerns. This medical document was created using an electronic medical record system with [employer] dictation system. Although these documentations are being carefully reviewed, there may still be some phonetic and typographical changes. The errors are purely typographical, due to imperfection on the software program, and do not reflect any compromise in the patient's medical care. Plan discussed with: Patient, Other (RN) TAE SABILLON MD Jan 21, 2025 20:38
[2025-01-22] VITALS (11 sets, daily range): BP systolic 117–142; BP diastolic 75–92; PULSE 79–86; RESP 16–19; TEMP 97.4–98.6; O2SAT 92–99
--- NOTE | 2025-01-22 13:50 | DVHPN2 ---
Subjective Intermittent cough with persistent hemoptysis Reviewed: Care Plan, H&P, Labs, Medications Changes from previous H/P or p: No Changes General: Per HPI Objective Vitals Vital Signs Date Time Temp Pulse Resp B/P (MAP) Pulse Ox O2 Delivery O2 Flow Rate FiO2 01/22/25 13:27 98.4 81 16 121/84 (96) 96 98.4 01/22/25 10:00 Room Air* 0 21 Intake/Output Intake and Output 01/22/25 07:00 Intake Total 2930 ml Balance 2930 ml Intake Oral 2480 ml IV Total 450 ml # Voids 11 # Bowel Movements 3 General Appearance: Alert, Oriented X3, Cooperative, No acute distress HEENT: Atraumatic, PERRLA Lungs: Clear to auscultation, Normal air movement Cardiovascular: Normal S1, Normal S2 Abdomen: Normal bowel sounds, Soft, No hepatospenomegaly Skin: Dry, Intact Psych/Mental Status: Mental status NL, Mood NL Medications Current Medications Medications Dose Ordered Sig/Jackelin Route Start Time Stop Time Status Last Admin Dose Admin Nitroglycerin 0.4 mg Q5MINP PRN SL 01/19/25 20:00 Morphine Sulfate 2 mg Q30M PRN IV 01/19/25 20:00 Ondansetron HCl 4 mg Q4HP PRN IV 01/19/25 20:30 Azithromycin 250 ml @ 125 mls/hr DAILY IV 01/20/25 16:00 01/22/25 10:39 125 MLS/HR Piperacillin Sod/ Tazobactam Sod 100 ml @ 25 mls/hr Q8HR IV 01/20/25 22:00 01/22/25 05:53 25 MLS/HR Diagnostic Test (Pha) 1 strip ACHS 01/21/25 11:30 01/22/25 11:30 1 STRIP Insulin Human Regular HS SC 01/21/25 22:00 01/21/25 22:04 10 UNITS Insulin Human Regular AC SC 01/21/25 11:30 01/22/25 11:57 15 UNITS Dextrose 50 ml UD PRN IV 01/21/25 11:30 Albuterol 2.5 mg Q3HPRN PRN NEB 01/21/25 13:45 Insulin Glargine 10 units DAILY@1000 SC 01/23/25 10:00 UNV Laboratory Results Laboratory Tests 01/20/25 06:05 Urinalysis Test 01/19/25 20:54 Urine Color Light-yellow (Yellow) Urine Clarity Clear (Clear) Urine pH 5.0 (5.0-9.0) Urine Specific [place] 1.041 (1.001-1.035) Urine Protein Negative (Negative) Urine Ketones 1+ (Negative) H Urine Blood Negative /uL (Negative) Urine Nitrite Negative (Negative) Urine Bilirubin Negative (Negative) Urine Urobilinogen Normal mg/dL (Negative) Urine Leukocyte Esterase Negative /uL (Negative) Urine RBC <1 /hpf (0 - 3) Urine Microscopic WBC < 1 /HPF (0-3) Urine Squamous Epithelial Cells None seen /hpf (<5) Urine Bacteria None seen /hpf (None Seen) Urine Glucose 4+ mg/dL (Normal) H Labs and/or images reviewed: Labs reviewed by me, Image(s) reviewed by me Assessment/Plan Assessment/Plan Impression: -hemoptysis, rule out tuberculosis -diabetes mellitus, uncontrolled -medication noncompliance Plan: Events: Blood sugars remain uncontrolled. AF being QuantiFERON is pending. Increase glycemic control. IV fluid resuscitation. -QuantiFERON gold, AFB smears : Pending -pulmonology consultation : Recommendations reviewed -infectious disease consultation : Recommendations appreciated -sliding scale to moderate coverage, add Lantus -p.r.n. bronchodilators -continue current antibiotic therapy for atypical pneumonia -repeat labs in a.m. Total time spent with patient discussing and formulating plan of care: 35 minutes. This medical document was created using an electronic medical record system with [employer] dictation system. Although this document has been carefully reviewed, there may still be some phonetic and typographical errors. These areas are purely typographical due to imperfections of the software programs, and do not reflect any compromise in the patient's medical care. Plan discussed with: Patient, Other (RN) My Orders Orders - DENICE TOVAR IMPROVEMENT COORDINATOR Procedure Category Date Status Time Insulin Lantus PHA 01/22/25 Logged (Glargine) (Lantus) 13:45 Insulin Lantus PHA 01/23/25 Logged (Glargine) (Lantus) 10:00 Sodium Chloride 0.9% PHA 01/22/25 Logged 13:45 Basic Metabolic Panel LAB 01/23/25 Verified 04:00 Acetone LAB 01/23/25 Verified 04:00 Date of Service: Jan 22, 2025 Billing Provider: DENICE TOVAR NP Common Visit Codes: [id number] INP/OBS CARE(HIGH) DENICE TOVAR NP Jan 22, 2025 13:50
[2025-01-22] MEDS: SODIUM CHLORIDE 0.9% 1,000 ML IV ONE (15:28)
[2025-01-22] MEDS: INSULIN LANTUS (GLARGINE) 1 /0.01ml (100units/ml) SC ONE (15:31)
[2025-01-23] VITALS (11 sets, daily range): BP systolic 103–148; BP diastolic 75–90; PULSE 74–89; RESP 18–19; TEMP 97.4–98.1; O2SAT 93–98
[2025-01-23 10:43] LABS: Chloride 102 mmol/L (98-107); Potassium 4.5 mmol/L (3.5-5.1)
[2025-01-23 10:44] LABS: Anion Gap 6 (5-15); Carbon Dioxide 26 mmol/L (20-31)
[2025-01-23 10:45] LABS: Calcium 8.8 mg/dL (8.7-10.4)
[2025-01-23 10:50] LABS: BUN/Creatinine Ratio 12.3 (10.0-20.0); Blood Urea Nitrogen 10 mg/dL (9-23)
[2025-01-23 10:54] LABS: Glucose 379 mg/dL (74-106); Sodium 134 mmol/L (136-145)
[2025-01-23] MEDS: INSULIN LANTUS (GLARGINE) 1 /0.01ml (100units/ml) SC SCH (11:08)
[2025-01-23] MEDS: ACCU-CHEK COMFORT CURVE STRIP VI SCH (12:00)
[2025-01-23] MEDS: InsuLIN REG 1unit/0.01ml Soln (100units/ml) SC SCH (12:00)
[2025-01-23] MEDS ORDERED: DEXTROSE (50%) 50ML SYRG IV PRN (12:00)
--- NOTE | 2025-01-23 13:21 | DVHPN2 ---
Subjective Intermittent cough with persistent hemoptysis Reviewed: Care Plan, H&P, Labs, Medications Changes from previous H/P or p: No Changes General: Per HPI Objective Vitals Vital Signs Date Time Temp Pulse Resp B/P (MAP) Pulse Ox O2 Delivery O2 Flow Rate FiO2 01/23/25 10:00 97 Room Air 01/23/25 10:00 0 21 01/23/25 09:00 97.6 89 18 107/78 (88) 97.6 Intake/Output Intake and Output 01/23/25 07:00 Intake Total 1810 ml Balance 1810 ml Intake Oral 1360 ml IV Total 450 ml # Voids 5 # Bowel Movements 2 General Appearance: Alert, Oriented X3, Cooperative, No acute distress HEENT: Atraumatic, PERRLA Lungs: Clear to auscultation, Normal air movement Cardiovascular: Normal S1, Normal S2 Abdomen: Normal bowel sounds, Soft, No hepatospenomegaly Skin: Dry, Intact Psych/Mental Status: Mental status NL, Mood NL Medications Current Medications Medications Dose Ordered Sig/Jackelin Route Start Time Stop Time Status Last Admin Dose Admin Nitroglycerin 0.4 mg Q5MINP PRN SL 01/19/25 20:00 Morphine Sulfate 2 mg Q30M PRN IV 01/19/25 20:00 Ondansetron HCl 4 mg Q4HP PRN IV 01/19/25 20:30 Azithromycin 250 ml @ 125 mls/hr DAILY IV 01/20/25 16:00 01/23/25 09:05 125 MLS/HR Piperacillin Sod/ Tazobactam Sod 100 ml @ 25 mls/hr Q8HR IV 01/20/25 22:00 01/23/25 05:31 25 MLS/HR Insulin Human Regular HS SC 01/21/25 22:00 01/22/25 22:44 4 UNITS Dextrose 50 ml UD PRN IV 01/21/25 11:30 Albuterol 2.5 mg Q3HPRN PRN NEB 01/21/25 13:45 Insulin Glargine 20 units DAILY@1000 SC 01/24/25 10:00 UNV Diagnostic Test (Pha) 1 strip IQ4HR 01/23/25 12:00 UNV Insulin Human Regular IQ4HR SC 01/23/25 12:00 UNV Dextrose 50 ml UD PRN IV 01/23/25 12:00 UNV Laboratory Results Laboratory Tests 01/20/25 06:05 01/23/25 09:30 Chemistry Test 01/23/25 09:30 Calcium Level 8.8 mg/dL (8.7-10.4) Urinalysis Test 01/19/25 20:54 Urine Color Light-yellow (Yellow) Urine Clarity Clear (Clear) Urine pH 5.0 (5.0-9.0) Urine Specific [place] 1.041 (1.001-1.035) Urine Protein Negative (Negative) Urine Ketones 1+ (Negative) H Urine Blood Negative /uL (Negative) Urine Nitrite Negative (Negative) Urine Bilirubin Negative (Negative) Urine Urobilinogen Normal mg/dL (Negative) Urine Leukocyte Esterase Negative /uL (Negative) Urine RBC <1 /hpf (0 - 3) Urine Microscopic WBC < 1 /HPF (0-3) Urine Squamous Epithelial Cells None seen /hpf (<5) Urine Bacteria None seen /hpf (None Seen) Urine Glucose 4+ mg/dL (Normal) H Microbiology Microbiology Date/Time Source Procedure Growth Status 01/21/25 13:45 Sputum AFB Broth Culture Pending Resulted 01/21/25 13:45 Sputum - Final Resulted 01/21/25 13:45 Sputum - Final Resulted 01/21/25 13:45 Sputum Acid Fast Bacilli Culture Pending Resulted Labs and/or images reviewed: Labs reviewed by me, Image(s) reviewed by me Assessment/Plan Assessment/Plan Impression: -hemoptysis, rule out tuberculosis -diabetes mellitus, uncontrolled -medication noncompliance Plan: Events: Still reporting hemoptysis. AFB still pending. BS uncontrolled. Increase Lantus and RISS -QuantiFERON gold, AFB smears : Pending -pulmonology consultation : Recommendations reviewed -infectious disease consultation : Recommendations appreciated -sliding scale to moderate coverage, add Lantus -p.r.n. bronchodilators -continue current antibiotic therapy for atypical pneumonia -repeat labs in a.m. Total time spent with patient discussing and formulating plan of care: 35 minutes. This medical document was created using an electronic medical record system with [employer] system. Although this document has been carefully reviewed, there may still be some phonetic and typographical errors. These areas are purely typographical due to imperfections of the software programs, and do not reflect any compromise in the patient's medical care. Plan discussed with: Patient, Other (RN) My Orders Orders - DENICE TOVAR NP Procedure Category Date Status Time Insulin Lantus PHA 01/24/25 Logged (Glargine) (Lantus) 10:00 Glucose Blood PHA 01/23/25 Logged (Accu-Chek Comfort 12:00 Insulin R (Human) PHA 01/23/25 Logged (Insulin R) 12:00 Dextrose 50% Syringe PHA 01/23/25 Logged 12:00 Date of Service: Jan 23, 2025 Billing Provider: DENICE TOVAR NP Common Visit Codes: [id number] INP/OBS CARE(HIGH) DENICE TOVAR NP Jan 23, 2025 13:21
[2025-01-24] VITALS (8 sets, daily range): BP systolic 102–128; BP diastolic 61–86; PULSE 78–87; RESP 17–19; TEMP 97.6–98.3; O2SAT 95–98
[2025-01-24] MEDS: INSULIN LANTUS (GLARGINE) 1 /0.01ml (100units/ml) SC SCH (11:23)
--- NOTE | 2025-01-24 18:57 | DVHPN2 ---
Subjective still have hemoptysis, quantiferon positive. culture pending. empirically treat with RIPE. starting basal bolus iss Reviewed: Care Plan, H&P, Labs, Medications Changes from previous H/P or p: No Changes General: Per HPI Objective Vitals Vital Signs Date Time Temp Pulse Resp B/P (MAP) Pulse Ox O2 Delivery O2 Flow Rate FiO2 01/24/25 16:49 98.2 79 18 104/63 (77) 98 98.2 01/24/25 10:00 Room Air 01/24/25 10:00 0 21 Intake/Output Intake and Output 01/24/25 07:00 Intake Total 2137 ml Balance 2137 ml Intake Oral 1587 ml IV Total 550 ml # Voids 7 # Bowel Movements 2 General Appearance: Alert, Oriented X3, Cooperative, No acute distress HEENT: Atraumatic, PERRLA Lungs: Clear to auscultation, Normal air movement Cardiovascular: Normal S1, Normal S2 Abdomen: Normal bowel sounds, Soft, No hepatospenomegaly Skin: Dry, Intact Psych/Mental Status: Mental status NL, Mood NL Medications Current Medications Medications Dose Ordered Sig/Jackelin Route Start Time Stop Time Status Last Admin Dose Admin Nitroglycerin 0.4 mg Q5MINP PRN SL 01/19/25 20:00 Morphine Sulfate 2 mg Q30M PRN IV 01/19/25 20:00 Ondansetron HCl 4 mg Q4HP PRN IV 01/19/25 20:30 Azithromycin 250 ml @ 125 mls/hr DAILY IV 01/20/25 16:00 01/24/25 11:17 125 MLS/HR Piperacillin Sod/ Tazobactam Sod 100 ml @ 25 mls/hr Q8HR IV 01/20/25 22:00 01/24/25 13:36 25 MLS/HR Albuterol 2.5 mg Q3HPRN PRN NEB 01/21/25 13:45 Cancel Insulin Glargine 20 units DAILY@1000 SC 01/24/25 10:00 01/24/25 11:23 20 UNITS Diagnostic Test (Pha) 1 strip IQ4HR 01/23/25 12:00 01/24/25 15:48 1 STRIP Insulin Human Regular IQ4HR SC 01/23/25 12:00 01/24/25 15:51 2 UNITS Dextrose 50 ml UD PRN IV 01/23/25 12:00 Laboratory Results Laboratory Tests 01/20/25 06:05 01/23/25 09:30 Urinalysis Test 01/19/25 20:54 Urine Color Light-yellow (Yellow) Urine Clarity Clear (Clear) Urine pH 5.0 (5.0-9.0) Urine Specific [place] 1.041 (1.001-1.035) Urine Protein Negative (Negative) Urine Ketones 1+ (Negative) H Urine Blood Negative /uL (Negative) Urine Nitrite Negative (Negative) Urine Bilirubin Negative (Negative) Urine Urobilinogen Normal mg/dL (Negative) Urine Leukocyte Esterase Negative /uL (Negative) Urine RBC <1 /hpf (0 - 3) Urine Microscopic WBC < 1 /HPF (0-3) Urine Squamous Epithelial Cells None seen /hpf (<5) Urine Bacteria None seen /hpf (None Seen) Urine Glucose 4+ mg/dL (Normal) H Microbiology Microbiology Date/Time Source Procedure Growth Status 01/23/25 05:40 Sputum AFB Broth Culture Pending Resulted 01/23/25 05:40 Sputum - Final Resulted 01/23/25 05:40 Sputum - Final Resulted 01/23/25 05:40 Sputum Acid Fast Bacilli Culture Pending Resulted Assessment/Plan Assessment/Plan Impression: -hemoptysis, rule out tuberculosis -diabetes mellitus, uncontrolled -medication noncompliance Plan: Events: Still reporting hemoptysis. AFB still pending. BS uncontrolled. Increase Lantus and RISS quantiferon positive -QuantiFERON gold, AFB smears : Pending -pulmonology consultation : Recommendations reviewed -infectious disease consultation : Recommendations appreciated empiric RIPE, imaging susp of TB -basal bolus iss -p.r.n. bronchodilators -continue current antibiotic therapy for atypical pneumonia -repeat labs in a.m. Plan discussed with: Patient Date of Service: Jan 24, 2025 Billing Provider: MADYSON HARVEY MD Common Visit Codes: [id number] INP/OBS CARE(HIGH) MADYSON HARVEY MD Jan 24, 2025 18:57
[2025-01-24] MEDS: ACCU-CHEK COMFORT CURVE STRIP VI SCH (21:36)
[2025-01-25] VITALS (8 sets, daily range): BP systolic 105–139; BP diastolic 70–88; PULSE 80–89; RESP 16–20; TEMP 97.7–98.4; O2SAT 94–99
[2025-01-25] MEDS: INSULIN LISPRO (HUMAN) 100 UNITS/ML ML SC SCH ×2 (06:16→06:17)
[2025-01-25 07:52] LABS: Hematocrit 35.2 % (41.0-53.0); Hemoglobin 12.6 g/dL (13.5-17.5); Mean Corpuscular Hemoglobin 31.7 pg (28.0-32.0); Mean Corpuscular Volume 88.3 fL (80.0-100.0); Nucleated Red Blood Cells % 0.0 %
[2025-01-25 08:11] LABS: Alanine Aminotransferase 23 U/L (7-40); Alkaline Phosphatase 59 U/L (46-116); Anion Gap 9 (5-15); BUN/Creatinine Ratio 14.3 (10.0-20.0); Calcium 9.1 mg/dL (8.7-10.4); Carbon Dioxide 25 mmol/L (20-31); Chloride 105 mmol/L (98-107); Potassium 3.7 mmol/L (3.5-5.1); Sodium 139 mmol/L (136-145); Total Protein 7.0 g/dL (5.7-8.2)
[2025-01-25 08:12] LABS: Albumin 4.0 g/dL (3.2-4.8)
[2025-01-25 08:13] LABS: Bilirubin, Total 0.5 mg/dL (0.2-1.0); Blood Urea Nitrogen 9 mg/dL (9-23); Glucose 149 mg/dL (74-106)
[2025-01-25] MEDS: PYRIDOXINE HCL 50 MG TAB PO SCH (09:07)
[2025-01-25] MEDS: ETHAMBUTOL HCL 400 MG TAB PO SCH (09:07)
[2025-01-25] MEDS: PYRAZINAMIDE 500 MG TAB PO SCH (09:08)
[2025-01-25] MEDS: ISONIAZID 300 MG TAB PO SCH (09:08)
[2025-01-25] MEDS: rifAMPin 300 MG CAP PO SCH (09:08)
--- NOTE | 2025-01-25 15:02 | DVHPN2 ---
Subjective per pt only had 4 mo treatment before. on empiric ripe. still have hemoptysis. smear neg, cult pending. pending ID consult. possible dc plan if smear final negative to dc and f/u with ID and pulm. Reviewed: Care Plan, H&P, Labs, Medications Changes from previous H/P or p: No Changes General: Per HPI Objective Vitals Vital Signs Date Time Temp Pulse Resp B/P (MAP) Pulse Ox O2 Delivery O2 Flow Rate FiO2 01/25/25 09:54 97 Room Air 0.0 01/25/25 09:54 21 01/25/25 09:00 98.2 88 20 105/70 (82) 98.2 Intake/Output Intake and Output 01/25/25 07:00 Intake Total 1524 ml Balance 1524 ml Intake Oral 974 ml IV Total 550 ml # Voids 6 # Bowel Movements 3 General Appearance: Alert, Oriented X3, Cooperative, No acute distress HEENT: Atraumatic, PERRLA Lungs: Clear to auscultation, Normal air movement Cardiovascular: Normal S1, Normal S2 Abdomen: Normal bowel sounds, Soft, No hepatospenomegaly Skin: Dry, Intact Psych/Mental Status: Mental status NL, Mood NL Medications Current Medications Medications Dose Ordered Sig/Jackelin Route Start Time Stop Time Status Last Admin Dose Admin Nitroglycerin 0.4 mg Q5MINP PRN SL 01/19/25 20:00 Morphine Sulfate 2 mg Q30M PRN IV 01/19/25 20:00 Ondansetron HCl 4 mg Q4HP PRN IV 01/19/25 20:30 Azithromycin 250 ml @ 125 mls/hr DAILY IV 01/20/25 16:00 01/25/25 09:07 125 MLS/HR Piperacillin Sod/ Tazobactam Sod 100 ml @ 25 mls/hr Q8HR IV 01/20/25 22:00 01/25/25 12:14 25 MLS/HR Albuterol 2.5 mg Q3HPRN PRN NEB 01/21/25 13:45 Cancel Insulin Glargine 20 units DAILY@1000 SC 01/24/25 10:00 01/25/25 09:31 20 UNITS Dextrose 50 ml UD PRN IV 01/23/25 12:00 Insulin Human Lispro 6 units AC SC 01/25/25 07:00 01/25/25 12:20 6 UNITS Insulin Human Lispro AC SC 01/25/25 07:00 01/25/25 11:30 4 UNITS Diagnostic Test (Pha) 1 strip ACHS 01/24/25 22:00 01/25/25 11:49 1 STRIP Rifampin 600 mg DAILY PO 01/25/25 10:00 01/25/25 09:08 600 MG Isoniazid 300 mg DAILY PO 01/25/25 10:00 01/25/25 09:08 300 MG Pyrazinamide 1,500 mg DAILY PO 01/25/25 10:00 01/25/25 09:08 1,500 MG Ethambutol HCl 1,200 mg DAILY PO 01/25/25 10:00 01/25/25 09:07 1,200 MG Pyridoxine HCl 50 mg DAILY PO 01/25/25 10:00 01/25/25 09:07 50 MG Laboratory Results Laboratory Tests 01/25/25 05:56 Chemistry Test 01/25/25 05:56 Albumin 4.0 g/dL (3.2-4.8) Calcium Level 9.1 mg/dL (8.7-10.4) Total Protein 7.0 g/dL (5.7-8.2) LFT Test 01/25/25 05:56 Alanine Aminotransferase (ALT) 23 U/L (7-40) Alkaline Phosphatase 59 U/L (46-116) Aspartate Amino Transferase (AST) 28 U/L (13-40) Total Bilirubin 0.5 mg/dL (0.2-1.0) Urinalysis Test 01/19/25 20:54 Urine Color Light-yellow (Yellow) Urine Clarity Clear (Clear) Urine pH 5.0 (5.0-9.0) Urine Specific [place] 1.041 (1.001-1.035) Urine Protein Negative (Negative) Urine Ketones 1+ (Negative) H Urine Blood Negative /uL (Negative) Urine Nitrite Negative (Negative) Urine Bilirubin Negative (Negative) Urine Urobilinogen Normal mg/dL (Negative) Urine Leukocyte Esterase Negative /uL (Negative) Urine RBC <1 /hpf (0 - 3) Urine Microscopic WBC < 1 /HPF (0-3) Urine Squamous Epithelial Cells None seen /hpf (<5) Urine Bacteria None seen /hpf (None Seen) Urine Glucose 4+ mg/dL (Normal) H Microbiology Microbiology Date/Time Source Procedure Growth Status 01/23/25 05:40 Sputum AFB Broth Culture Pending Resulted 01/23/25 05:40 Sputum - Final Resulted 01/23/25 05:40 Sputum - Final Resulted 01/23/25 05:40 Sputum Acid Fast Bacilli Culture Pending Resulted Assessment/Plan Assessment/Plan Impression: -hemoptysis, rule out tuberculosis -diabetes mellitus, uncontrolled -medication noncompliance Plan: Events: Still reporting hemoptysis. AFB still pending. BS uncontrolled. Increase Lantus and RISS quantiferon positive -QuantiFERON gold, AFB smears : Pending -pulmonology consultation : Recommendations reviewed -infectious disease consultation : Recommendations appreciated empiric RIPE, imaging susp of TB -basal bolus iss -p.r.n. bronchodilators -continue current antibiotic therapy for atypical pneumonia -repeat labs in a.m. Plan discussed with: Patient My Orders Orders - MADYSON HARVEY MD Procedure Category Date Status Time Insulin Lispro PHA 01/25/25 In Process (Human) (Humalog) 07:00 Insulin Lispro PHA 01/25/25 In Process (Human) (Humalog) 07:00 Glucose Blood PHA 01/24/25 In Process (Accu-Chek Comfort 22:00 Rifampin Capsule PHA 01/25/25 In Process 10:00 Isoniazid (Isoniazid) PHA 01/25/25 In Process 10:00 Pyrazinamide PHA 01/25/25 In Process (Pyrazinamide) 10:00 Ethambutol Hcl PHA 01/25/25 In Process (Myambutol) 10:00 Pyridoxine Hcl Tablet PHA 01/25/25 In Process (Vitamin B-6 Table 10:00 Date of Service: Jan 25, 2025 Billing Provider: MADYSON HARVEY MD Common Visit Codes: [id number] INP/OBS CARE(HIGH) MADYSON HARVEY MD Jan 25, 2025 15:02
[2025-01-26 05:00] VITALS: BP 124/81; PULSE 80; RESP 18; TEMP 97.9; O2SAT 97
[2025-01-26 07:41] VITALS: RESP 16
[2025-01-26 09:13] VITALS: BP 123/76; PULSE 57; RESP 18; TEMP 97.9; O2SAT 90
[2025-01-26 09:38] VITALS: O2SAT 97
[2025-01-26] MEDS ORDERED: LEVO500T91 PO (12:28)
[2025-01-26] MEDS ORDERED: LANC-347 XX (12:28)
[2025-01-26] MEDS ORDERED: INSU100I51 SC (12:28)
[2025-01-26] MEDS ORDERED: INSLANTI SC (12:28)
[2025-01-26] MEDS ORDERED: BLOO1KIT60 XX (12:28)
--- NOTE | 2025-01-26 12:39 | DVHDS2 ---
Discharge Summary Date of Admission Jan 19, 2025 at 20:22 Date of Discharge: Jan 26, 2025 Admitting Diagnosis Hemoptysis Labs/Diagnostic Data: Laboratory Results Test 01/26/25 11:21 01/25/25 05:56 01/23/25 16:14 01/23/25 09:30 POC Glucose 346 mg/dl (70-106) White Blood Count 4.0 10^3/uL (4.4-10.8) Red Blood Count 3.98 10^6/uL (4.5-5.90) Hemoglobin 12.6 g/dL (13.5-17.5) Hematocrit 35.2 % (41.0-53.0) Mean Corpuscular Volume 88.3 fL (80.0-100.0) Mean Corpuscular Hemoglobin 31.7 pg (28.0-32.0) Mean Corpuscular Hemoglobin Concent 35.9 g/dL (32.0-36.0) Red Cell Distribution Width 12.5 % (11.8-14.3) Platelet Count 327 10^3/uL (140-450) Mean Platelet Volume 7.2 fL (6.9-10.8) Neutrophils (%) (Auto) 47.7 % (37.0-80.0) Lymphocytes (%) (Auto) 39.5 % (10.0-50.0) Monocytes (%) (Auto) 10.3 % (0.0-12.0) Eosinophils (%) (Auto) 2.2 % (0.0-7.0) Basophils (%) (Auto) 0.3 % (0.0-2.0) Neutrophils # (Auto) 1.9 10 ^3/uL (1.6-8.6) Lymphocytes # (Auto) 1.6 10 ^3/uL (0.4-5.4) Monocytes # (Auto) 0.4 10 ^3/uL (0-1.3) Eosinophils # (Auto) 0.1 10 ^3/uL (0-0.8) Basophils # (Auto) 0 10 ^3/uL (0-0.2) Nucleated Red Blood Cells 0.0 % Sodium Level 139 mmol/L (136-145) Potassium Level 3.7 mmol/L (3.5-5.1) Chloride Level 105 mmol/L (98-107) Carbon Dioxide Level 25 mmol/L (20-31) Anion Gap 9 (5-15) Blood Urea Nitrogen 9 mg/dL (9-23) Creatinine 0.63 mg/dL (0.700-1.30) Glomerular Filtration Rate Calc 115 mL/min (>90) BUN/Creatinine Ratio 14.3 (10.0-20.0) Serum Glucose 149 mg/dL (74-106) Calcium Level 9.1 mg/dL (8.7-10.4) Total Bilirubin 0.5 mg/dL (0.2-1.0) Aspartate Amino Transferase (AST) 28 U/L (13-40) Alanine Aminotransferase (ALT) 23 U/L (7-40) Alkaline Phosphatase 59 U/L (46-116) Total Protein 7.0 g/dL (5.7-8.2) Albumin 4.0 g/dL (3.2-4.8) Miscellaneous Referred Test (Refrg) Sent to [facility] Beta-Hydroxybutyric Acid 0.169 mmol/L (< 0.4) Test 01/22/25 11:50 01/20/25 06:05 01/19/25 23:02 01/19/25 20:54 Miscellaneous Test Sent to [facility] Erythrocyte Sedimentation Rate 28 mm/hr (0-20) Hemoglobin A1c > 14.0 % A1C (<5.7) C-Reactive Protein High Sensitivity 0.17 mg/dL (<1.0) HIV (1&2) Antibody Negative (Negative) TB Test (QFT) Gold Plus Positive (Negative) TB Test (QFT) Nil 0.90 IU/mL (.) TB Test (QFT) Mitogen >10.00 IU/mL (.) TB Test (QFT) Antigen 1 >10.00 IU/mL (.) TB Test (QFT) Antigen 2 >10.00 IU/mL (.) TB Test (QFT) Criteria Comment (.) Urine Color Light-yellow (Yellow) Urine Clarity Clear (Clear) Urine pH 5.0 (5.0-9.0) Urine Specific [place] 1.041 (1.001-1.035) Urine Protein Negative (Negative) Urine Ketones 1+ (Negative) Urine Blood Negative /uL (Negative) Urine Nitrite Negative (Negative) Urine Bilirubin Negative (Negative) Urine Urobilinogen Normal mg/dL (Negative) Urine Leukocyte Esterase Negative /uL (Negative) Urine RBC <1 /hpf (0 - 3) Urine Microscopic WBC < 1 /HPF (0-3) Urine Squamous Epithelial Cells None seen /hpf (<5) Urine Bacteria None seen /hpf (None Seen) Urine Glucose 4+ mg/dL (Normal) Other Laboratory Tests 01/25/25 05:56 Brief Hx & Hospital Course: History of Present Illness 49-year-old male presents for evaluation of bloody cough. Patient reports a one day history of having a cough with bloody sputum. Denies fever or chills. No night sweats. Patient does report being treated for tuberculosis nine years ago for which he completed six months of treatment. Course of hospitalization: Patient had AFB smear x3 which were all negative. QuantiFERON gold did come back positive, which has a reflexion of his previous tuberculosis infection. Patient is currently on room air. Blood sugars were a challenge to control, now on both lispro and Lantus. Patient will be discharged home and continued on antibiotic therapy with Levaquin 500 mg p.o. for additional seven days. Patient will be provided and Accu-Chek machine, Lantus 25 units q.h.s., as well as aspart 6 units a.c. and HS. Patient will follow up with [place] [facility] in 1 week. All questions answered. Physical examination General: Alert and Oriented x3. No acute distress. Well-nourished. Eyes: EOMI. Anicteric. HENT: Moist mucous membranes. Lungs: Clear to auscultation bilaterally. No accessory muscle use. Cardiovascular: Regular rate and rhythm. No murmur. No JVD. Abdomen: Soft, non-tender and non-distended. No palpable masses. Extremities: No edema. Non-tender. Skin: No rashes or lesions. Warm. Neurologic: No focal neurological deficits. CN II-XII grossly intact, but not individually tested. Psychiatric: Cooperative. Appropriate mood and affect. Total time spent with patient discussing and formulating plan of care: 35 minutes. This medical document was created using an electronic medical record system with [employer] dictation system. Although this document has been carefully reviewed, there may still be some phonetic and typographical errors. These areas are purely typographical due to imperfections of the software programs, and do not reflect any compromise in the patient's medical care. Consults/Reason for consult Pulmonology: Rule out TB Infectious disease: Rule out TB Condition at Discharge: Fair Final Diagnosis/Problems List Community-acquired pneumonia, probable Gram-positive/Gram-negative etiology Acute TB ruled out Secondary diagnosis: -hemoptysis, rule out tuberculosis -diabetes mellitus, uncontrolled -medication noncompliance Discharge Disposition: Home Discharge Instruct/Medications Diet: Consistent carbohydrate Activity: No Restrictions, As Tolerated Follow Up/Referral: Discharge Clinic in one week Medications: Levaquin 500 mg p.o. daily x7 days Lantus 25 units subcutaneous q.h.s. Insulin aspart 6 units before each meal Check blood sugars a.c. and HS, keep a log Scheduled Insulin Aspart (Insulin Aspart Flexpen), 6 UNIT SC ACHS Insulin Glargine (Lantus), 25 UNIT SC DAILY Levofloxacin Hemihydrate (Levaquin 500 Mg), 1 TAB PO DAILY Durable Medical Equipment Blood Glucose Monitoring Suppl (D-Care Glucometer Kit/Glu W/Device), KIT XX ACHS, (DME) Lancets (Freestyle Lancets), UNIT XX AC, (DME) 36 Discharge Statement: "Patient was advised to return to the ER or call 911 if any headaches, dizziness, shortness of breath, chest pain, abdominal pain, bleeding, fevers, or worsening of medical condition. Patient was counseled about treatment plan, medications, possible side effects, patientverbalized understanding. All questions were answered to the best of my ability. This discharge took greater then 30 minutes in planning, reviewing documentation, counseling the patient, and discussing with other team members." ASSESSMENT ASSESSMENT Assessment Community-acquired pneumonia, probable Gram-positive/Gram-negative etiology Acute TB ruled out Date of Service: Jan 26, 2025 Billing Provider: DENICE TOVAR NP Common Visit Codes: [id number] DISCH DAY >30min DENICE TOVAR NP Jan 26, 2025 12:39
[2025-01-26 13:15] VITALS: TEMP 36.6
--- NOTE | 2025-01-26 15:58 | CODING ---
Date of Service: Jan 20, 2025 Billing Provider: TAE SABILLON MD Common Visit Codes: [id number] INP/OBS CARE (HIGH) TAE SABILLON MD Jan 26, 2025 15:58
--- NOTE | 2025-01-26 15:58 | CODING ---
Date of Service: Jan 21, 2025 Billing Provider: TAE SABILLON MD Common Visit Codes: [id number] INP/OBS CARE(HIGH) TAE SABILLON MD Jan 26, 2025 15:58
== END 2025-01-26 15:00 | disposition home or self-care (01) | DRG 137 ==
LOC: ER 15:23 → OVERFLOW 19:55 → WEST WING 01-20 15:27
PROVIDERS: ADMIT Nurse Practitioner Acute Care; ATTEND Nurse Practitioner Acute Care
DX: J15.69 Pneumonia due to other Gram-negative bacteria (principal); R04.2 Hemoptysis; J15.9 Unspecified bacterial pneumonia; E11.9 Type 2 diabetes mellitus without complications; R91.1 Solitary pulmonary nodule; J98.4 Other disorders of lung; Z86.11 Personal history of tuberculosis; Z79.4 Long term (current) use of insulin; Z79.899 Other long term (current) drug therapy; Z91.148 Patient's other noncompliance with medication regimen for other reason
CPT/HCPCS: 36415; 71046; 71250; 80048; 80053; 81001; 82010; 82962; 83036; 85014; 85018; 85025; 85652; 86141; 86703; G0378; J1815; J2543